=== PATIENT | male | born 1995 | race Caucasian/White ===

== ENCOUNTER 2016-06-08 16:35 | Emergency (ER) | payer BC ==
[2016-06-08] MEDS ORDERED: Ibuprofen TAB* 600 MG PO ONE (17:33)
--- NOTE | 2016-06-08 18:15 | UC ---
FLU HPI - HPI Summary HPI Summary: 20 male presents complaining of flu like symptoms that began last night 06/07/16. Patient complains of symptoms of fever/chills, body aches, cough, congestion, fatigue and mild sore throat. Patient denies nausea, vomiting and abdominal pain. States his fever was 103. He tried taking TheraFlu OTC however it did not give him any relief. He was given Ibuprofen while at around 5:30pm. Denies difficulty breathing and chest pain. - History of Current Complaint Chief Complaint: UCGeneralIllness Stated Complaint: FLU LIKE SYMPTOMS Time Seen by Provider: 06/08/16 18:01 Hx Obtained From: Patient Onset/Duration: Sudden Onset Severity Currently: Moderate Severity Initially: Severe Pain Intensity: 8 Pain Scale Used: 0-10 Numeric Associated Signs & Symptoms: Positive: T Max - 103.7, F/C, Myalgia, Cough, Sore Throat, Nasal Congestion, Headache. Negative: Vomiting, Diarrhea - Allergy/Home Medications Allergies/Adverse Reactions: Allergies Allergy/AdvReac Type Severity Reaction Status Date / Time No Known Allergies Allergy Verified 06/08/16 17:37 PMH/Surg Hx/FS Hx/Imm Hx - Surgical History Surgical History: Yes Surgery Procedure, Year, and Place: Right ACL - Family History Known Family History: Positive: None - Social History Alcohol Use: Weekly Substance Use Type: None Substance Use Comment - Amount & Last Used: marijuana Smoking Status (MU): Never Smoked Tobacco Review of Systems Constitutional: Fever, Chills, Fatigue Skin: Negative Eyes: Negative ENT: Sore Throat, Ear Ache, Nasal Discharge Respiratory: Cough Cardiovascular: Negative Gastrointestinal: Negative Genitourinary: Negative Motor: Negative Neurovascular: Negative Musculoskeletal: Negative Neurological: Headache Psychological: Negative All Other Systems Reviewed And Are Negative: Yes Physical Exam Triage Information Reviewed: Yes Appearance: No Pain Distress, Well-Nourished, Ill-Appearing Vital Signs: Initial Vital Signs Temp 103.7 F 06/08/16 17:26 Pulse 106 06/08/16 17:26 Resp 16 06/08/16 17:26 BP 130/57 06/08/16 17:26 Pulse Ox 99 06/08/16 17:26 fever, tachycardia. Vital Signs Reviewed: Yes Eyes: Positive: Conjunctiva Clear ENT: Positive: Hearing grossly normal, Pharynx normal, Nasal congestion, TMs normal. Negative: Tonsillar swelling, Tonsillar exudate Dental Exam: Normal Neck: Positive: Supple, Nontender, No Lymphadenopathy Respiratory: Positive: Chest non-tender, Lungs clear, Normal breath sounds, No respiratory distress Cardiovascular: Positive: RRR, No Murmur, Pulses Normal, Brisk Capillary Refill , Tachycardia Abdomen Description: Positive: Nontender, No Organomegaly, Soft Musculoskeletal Exam: Normal Neurological Exam: Normal Psychological Exam: Normal Skin Exam: Normal Flu Course/Dx - Course Course Of Treatment: influenza culture obtained and negative, however due to history of present illness symptoms and physical examination patient will be treated for influenza. patient was given ibuprofen for fever and body aches while in office. told to continue it for the next few days and also will be given tamiflu since symptoms began less than 48 hours ago. - Differential Dx/Diagnosis Differential Diagnosis/HQI/PQRI: Bronchitis, Influenza, Upper Respiratory Infection Provider Diagnoses: Influenza Discharge - Discharge Plan Condition: Stable Disposition: HOME Prescriptions: RX: Ibuprofen TAB* [Motrin TAB* 600 MG] 600 mg PO Q6H PRN #15 tab PRN Reason: Fever Oseltamivir CAP* [Tamiflu CAP*] 75 mg PO BID #10 cap Patient Education Materials: Influenza (ED) Referrals: [facility] [Outside] Additional Instructions: Take both Ibuprofen for fever/aches and Tamiflu as prescribed. Drink plenty of fluids and get lots of rest. Remember the flu is very contagious. If symptoms do not improve or worsen please return to .
== END 2016-06-08 18:48 | disposition home or self-care (01) ==
LOC: UCCORT 16:35
DX: J11.1 Influenza due to unidentified influenza virus with other respiratory manifestations (principal)
CPT/HCPCS: 87502; 99202; A9270-GY; G0463